=== PATIENT | male | born 1990 | race Hispanic/Latino ===

== ENCOUNTER 2021-06-01 07:31 | Emergency (ER) | payer OTHER | END 2021-06-01 08:53 | disposition home or self-care (01) | LOC: CSHERS 07:31 | DX: S29.011A Strain of muscle and tendon of front wall of thorax, initial encounter (principal); F17.210 Nicotine dependence, cigarettes, uncomplicated; X50.0XXA Overexertion from strenuous movement or load, initial encounter | CPT/HCPCS: 99283 ==

== ENCOUNTER 2021-07-10 09:17 | Outpatient (CLI) | payer OTHER | END 2021-07-10 09:18 | disposition home or self-care (01) | LOC: CSHCT 09:17 | PROVIDERS: ATTEND Family Medicine | DX: S29.011A Strain of muscle and tendon of front wall of thorax, initial encounter (principal) | CPT/HCPCS: 71270 ==

== ENCOUNTER 2022-02-25 16:11 | Outpatient (CLI) | payer BC | END 2022-02-25 16:12 | disposition home or self-care (01) | LOC: CSHRAD 16:11 | PROVIDERS: ATTEND Family Medicine Sports Medicine | DX: S43.60XA Sprain of unspecified sternoclavicular joint, initial encounter (principal) | CPT/HCPCS: 71130 ==

== ENCOUNTER 2022-05-10 05:25 | Emergency (ER) | payer BC ==
[2022-05-10] MEDS ORDERED: Lorazepam 2 MG/ML VIAL ONE (06:18)
[2022-05-10] MEDS ORDERED: Meclizine HCl 25 MG TAB ONE (07:09)
== END 2022-05-10 07:40 | disposition home or self-care (01) ==
LOC: CSHERS 05:25
DX: R42 Dizziness and giddiness (principal); F17.210 Nicotine dependence, cigarettes, uncomplicated
CPT/HCPCS: 96361; 96374; J2060

== ENCOUNTER 2022-07-12 19:58 | Emergency (ER) | payer BC ==
[2022-07-12] MEDS ORDERED: Nitroglycerin 2% Ointment 1 INCH/1 GM Packet ONE (20:29)
[2022-07-12] MEDS ORDERED: Aspirin Chewable 81 MG TAB ONE (20:29)
[2022-07-12 20:47] LABS: #Basophils 0.1 10x3/uL (0.0-0.2); #Eosinphils 0.4 10x3/uL (0.0-0.5); #Monocytes 0.9 10x3/uL (0.0-1.1); #Neutrophils 4.5 10x3/uL (1.5-8.4); %Basophils 0.9 % (0.0-2.0); %Eosinophils 4.1 % (0.0-6.0); %Monocytes 8.8 % (0.0-10.0); Hemoglobin 15.4 g/dL (13.5-17.5); Mean Corpuscular HGB CONC 34.5 g/dL (32.0-36.0); Mean Corpuscular Hemoglobin 29.5 pg (27.0-33.0); Mean Corpuscular Volume 85.4 fl (81.2-95.1); Mean Platelet Volume 9.2 fl (7.4-10.4); Platelet Count 337 10x3/uL (150-450); RBC Distribution Width 12.5 % (11.5-14.5); Red Blood Cell (RBC) Count 5.22 10x6/uL (4.32-5.72); White Blood Cell (WBC) Count 10.2 10x3/uL (3.5-10.5)
[2022-07-12 21:04] LABS: ALT (SGPT) 30 U/L (8-55); AST (SGOT) 30 U/L (5-34); Albumin 4.5 g/dL (3.5-5.0); Alkaline Phosphatase 70 U/L (40-110); Anion Gap 15 mmol/L (10-20); BUN (Urea Nitrogen) 15 mg/dL (8.9-20.6); Bilirubin, Total 0.4 mg/dL (0.2-1.2); Calc. Creatinine Clearance 0 mL/min (70-130); Calcium 9.6 mg/dL (7.8-10.44); Carbon Dioxide 23 mmol/L (22-29); Chloride 104 mmol/L (98-107); Estimated GFR 80; Globulin 3.4 g/dL (2.4-3.5); Glucose 100 mg/dL (70-105); Lipase 48 U/L (8-78); Potassium 4.2 mmol/L (3.5-5.1); Protein, Total 7.9 g/dL (6.0-8.3); Sodium 138 mmol/L (136-145)
== END 2022-07-12 22:18 | disposition home or self-care (01) ==
LOC: CSHERS 19:58
DX: R07.89 Other chest pain (principal); R12 Heartburn
CPT/HCPCS: 71045; 80053; 83690; 84484; 85025; 93005

== ENCOUNTER 2025-02-14 09:33 | Outpatient (CLI) | payer BC | END 2025-02-14 09:34 | disposition home or self-care (01) | LOC: CSHRAD 09:33 | PROVIDERS: ATTEND Family Medicine Sports Medicine | DX: R07.89 Other chest pain (principal) | CPT/HCPCS: 71046; 71130 ==